=== PATIENT | male | born 1985 | race Caucasian/White ===

== ENCOUNTER 2020-06-06 09:13 | Emergency (ER) | payer OTHER ==
[~2020-06-06] VITALS: Ht 172.7 cm; Wt 84.8 kg
[~2020-06-06 09:13] MED LIST: DIAZ10TA7 PO; HYDR-5191 PO
[2020-06-06 09:27] VITALS: BP 134/96
--- NOTE | 2020-06-06 09:33 | NUR ---
TAKEN TO BED 4 VIA W/C
[2020-06-06] MEDS ORDERED: KETOROLAC 60 MG/2 ML VIAL IM ONE (09:40)
--- NOTE | 2020-06-06 09:40 | NUR ---
34 y/o male from home c/o left great toe pain s/p shelf fell on foot yesterday. Pt seen at [place] yesterday and diagnosed with fracture to toe. Noticable bruising to toe. States increased pain with ambulation. +cms. VSS
--- NOTE | 2020-06-06 09:41 | NUR ---
Dr Giang at bedside examining pt
[2020-06-06 09:54] VITALS: BP 134/96
--- NOTE | 2020-06-06 09:55 | NUR ---
Patient discharged with v/s stable. Written and verbal after care instructions given and explained. Patient alert, oriented and verbalized understanding of instructions. Ambulatory with steady gait. All questions addressed prior to discharge. ID band removed. Patient advised to follow up with PMD. Rx of Motrin 800mg and [place] 5mg-325mg given. Patient educated on indication of medication including possible reaction and side effects. Opportunity to ask questions provided and answered. Ortho shoe placed to left foot. Pt able to ambulate without difficulty.
== END 2020-06-06 09:55 | disposition home or self-care (01) ==
LOC: MED 09:13
DX: S92.415A Nondisplaced fracture of proximal phalanx of left great toe, initial encounter for closed fracture (principal); S90.212A Contusion of left great toe with damage to nail, initial encounter; F12.90 Cannabis use, unspecified, uncomplicated; J45.909 Unspecified asthma, uncomplicated; Z79.899 Other long term (current) drug therapy; W19.XXXA Unspecified fall, initial encounter; Y93.89 Activity, other specified; Y92.89 Other specified places as the place of occurrence of the external cause; Y99.8 Other external cause status
CPT/HCPCS: 11740; 96372; 99284; J1885; 99283